=== PATIENT | male | born 1955 | race Caucasian/White ===

== ENCOUNTER 2025-06-22 15:05 | Outpatient (AMB) | payer BC, SELFPAY ==
--- NOTE | 2025-06-22 15:17 | A.OFFVIS_ITS ---
Vital Signs 3 06/22/25 15:18 Weight 233 lb 11.04 oz BP 122/68 Blood Pressure Location Rt brachial Position Sitting Pulse 69 Pulse Source Pulse Oximeter Pulse Oximetry (%) 98 Oxygen Delivery Method Room Air Intake Visit Reasons: T2DM Intake Note: NEW Patient presents today to establish treatment for Type 2 Diabetes Mellitus with Hyperglycemia: Last Diabetic eye exam was on: DUE Last Podiatry exam was on: Patient does not see a Middleware Consultant Most recent HbA1c: 13.4%, 04/14/2025, test completed at PCP. Random Glucose: 320 mg/dL L [address] Light Required: No Accompanied by: Self / Same As Patient Allergies No Known Allergies Allergy (Verified 06/22/25 15:34) HPI Comments Details: 69 years old male with past medical history of type 2 diabetes, hypothyroidism, morbid obesity, hypertension, hyperlipidemia, history of CVA, BPH, seen in the office for evaluation and treatment of type 2 diabetes. He lives in [place] but he works in [place]. We will be working there for the next 3 months. Diagnosed: 6 years Current medication: Mounjaro 7.5mg weekly- started 1 year ago, increased to 7.5mg 3 months ago Glipizide ER 10mg daily Januvia 50 mg daily Lantus increased 36 (from 20)- 2 months ago Reports being compliant with medications. Does not drink alcohol. Does not smoke. Previous medication: Metformin used in the past, stopped due to low efficacy per PCP- No reported side efects Blood sugar: Patient did not bring sensor or BG logs Hypoglycemia: no Weight: Lost 15 lbs in the last 3 weeks Macrovascular complications: PVD, +CVA (6 years ago), [place] Microvascular complications: No Retinopathy, Nephropathy, Neuropathy Denies tingling numbness in his feet, intermittent tingling in L hand Diet: eats fast food a lot as he travels for work. Does not drink soda, drinks regular sweet tea, and a lot of coconut water Exercise: No formally exercise Eye doctor: last seen 4 months ago, no DR- Malian eyewear and contacts Podiatry: never seen one. 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 CV: Regular heart rate and rhythm. Peripheral pulses, edema. Resp: Lungs clear to auscultation bilaterally Abdomen: Soft, nontender. nondistended. Insulin injection/pump site: Extremities/Neuro: No weakness or edema. Monofilament exam: Diabetic Foot Exam: Ulcers, wounds, calluses, deformities. Labs 04/14/2025 Complete Blood Count (CBC) WBC: 7.3 (4.1?10.8 x10^3/?L) RBC: 5.10 (4.14?5.80 x10^6/?L) Hemoglobin: 15.6 (13.0?17.7 g/dL) Hematocrit: 45.2 (37.5?51.0 %) MCV: 91 (79?97 fL) MCH: 30.6 (26.6?33.0 pg) MCHC: 33.8 (31.5?37.3 g/dL) RDW: 11.8 (11.6?15.4 %) Platelets: 235 (150?450 x10^3/?L) Hemoglobin A1c: 13.4% (High) Basic Metabolic Panel Glucose: 307 (High) (70?99 mg/dL) BUN: 17 (8?27 mg/dL) Creatinine: 1.05 (0.76?1.27 mg/dL) BUN/Creatinine Ratio: 16 (10?24) Sodium: 137 (134?144 mmol/L) Potassium: 4.5 (3.5?5.2 mmol/L) Chloride: 100 (95?106 mmol/L) CO? (Bicarbonate): 21 (20?29 mmol/L) Calcium: 9.3 (8.6?10.2 mg/dL) Total Protein: 6.7 (6.0?8.5 g/dL) Albumin: 4.3 (3.9?4.9 g/dL) Globulin: 2.4 (1.5?4.5 g/dL) Total Bilirubin: 0.6 (0.0?1.2 mg/dL) Alkaline Phosphatase: 57 (44?121 IU/L) AST (SGOT): 14 (0?40 IU/L) ALT (SGPT): 20 (0?44 IU/L) eGFR: 78 (>59 mL/min/1.73m?) 4. Lipid Panel Cholesterol, Total: 91 (Low) (100?199 mg/dL) Triglycerides: 130 (0?149 mg/dL) HDL Cholesterol: 39 (Low) (>39 mg/dL) VLDL Cholesterol (calculated): 23 (5?40 mg/dL) LDL Cholesterol (calculated): 29 (0?99 mg/dL) LDL/HDL Ratio: 0.7 (0.0?3.6 ratio) [facility] Medical History History of being hospitalized Diabetic peripheral neuropathy Benign prostatic hyperplasia with lower urinary tract symptoms Osteoarthritis of left knee Male erectile dysfunction, unspecified Essential (primary) hypertension Lipoma of back History of CVA (cerebrovascular accident) Carpal tunnel syndrome, bilateral Dizziness Morbid (severe) obesity due to excess calories Other specified hypothyroidism Mixed hyperlipidemia tank terminal gauger (current) use of insulin Type 2 diabetes mellitus with hyperosmolarity without nonketotic hyperglycemic- hyperosmolar coma ([facility]) Type 2 diabetes mellitus with hyperglycemia Surgical History History of carpal tunnel repair History of left knee replacement Hx of arthroscopy of right knee History of laparoscopic appendectomy Family History Father HTN (hypertension) Mother History of diabetes mellitus Social History Alcohol intake: current Alcohol intake frequency: does not drink Patient Tobacco Use Status: Former Tobacco user Physical Exam Vital Signs: Last Vital Signs Pulse 69 06/22/25 15:18 BP 122/68 06/22/25 15:18 Pulse Ox 98 06/22/25 15:18 Oxygen Delivery Method Room Air 06/22/25 15:18 Results Reviewed Results Reviewed: Laboratory Last Values Glucose (Clinic) 320 mg/dL (60-115) H 06/22/25 15:28 Assessment & Plan Assessment & Plan (1) Type 2 diabetes mellitus with hyperglycemia: Code(s): E11.65 - Type 2 diabetes mellitus with hyperglycemia Category: Medical (2) tank terminal gauger (current) use of insulin: Code(s): Z79.4 - tank terminal gauger (current) use of insulin Category: Medical Plan: T2DM (diagnosed ?6 years ago) with severe hyperglycemia and Suboptimal glycemic control despite multi-drug therapy (Mounjaro, Lantus, glipizide, Januvia; previously metformin). No history of hypoglycemia. No current evidence of microvascular complications (retinopathy, nephropathy, neuropathy). Contributing factors: inconsistent diet (frequent fast food due to travel), lack of structured exercise, possible suboptimal medication absorption (injection site rotation discussed), and possible medication non-optimization. Recent 15 lb weight loss over 3 weeks, likely multifactorial (dietary changes, Mounjaro). Patient is made aware of the importance of exercise, and medication and dietary compliance to improve diabetes control. Plan Discontinue glipizide and Januvia (minimal benefit at current A1c), glipizide may increase the risk of hypoglycemia Continue Mounjaro at 7.5 mg given the patient has appropriate weight loss with the current dose, we will consider increasing if way become standard Increase Lantus to 42 units nightly; titrate further as needed based on glucose logs/CGM. Initiate rapid-acting insulin (Lispro) with meals using a detailed sliding scale; provide written instructions. Strongly encourage use of [employer] CGM; patient to apply sensor in [place] and bring data to next visit. If CGM not available, maintain detailed blood glucose log (pre-meal, post-meal, bedtime). Educate on signs/symptoms of hypoglycemia and provide written management instructions. Reinforce importance of rotating injection sites to prevent lipohypertrophy and ensure optimal insulin absorption. Follow-up in 3 months; sooner if persistent hyperglycemia or hypoglycemia. (3) Morbid (severe) obesity due to excess calories: Code(s): E66.01 - Morbid (severe) obesity due to excess calories Category: Medical Plan: Patient with morbid obesity, currently on zepbound which was increased to 7.5 mg 3 months ago. Significant weight loss recently, but BMI likely remains in the obese range. Obesity is a major contributor to insulin resistance and complicates glycemic control. Plan We will order labs and screen the patient for MASLD with FIB-4 Score the next visit Continue dietary improvements; encourage further reduction in fast food, increased intake of lean proteins, vegetables, and whole grains. Encourage meal planning and healthy options even when traveling (e.g., pre- packed meals, grocery store options). Encourage gradual increase in physical activity (walking, resistance training as tolerated). 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 On levothyroxine 125 mcg daily for at least one year. No recent TFTs Medication administration suboptimal (taken with other meds/food). Plan Continue levothyroxine 125 mcg daily. Instruct patient to take levothyroxine on an empty stomach, at least 1 hour before other medications or 3 hours after last meal. Monitoring: Order TSH, free T4, and thyroid antibodies at next visit to assess control and etiology. Reinforce importance of proper medication timing for optimal absorption. Plan 60 minutes spent reviewing previous records, labs, imaging, education and documenting in the chart Orders: Orders 2 TSH reflex Free T4 Today E03.9 - Hypothyroidism, unspecified Thyroid Peroxidase Antibodies Today E03.9 - Hypothyroidism, unspecified Basic Metabolic Panel Today E11.65 - Type 2 diabetes mellitus with hyperglycemia, E66.01 - Morbid (severe) obesity due to excess calories Microalbumin, Random (w Creat) Today E11.65 - Type 2 diabetes mellitus with hyperglycemia Complete Blood Count no Diff Today E03.9 - Hypothyroidism, unspecified Lipid Panel Today E11.65 - Type 2 diabetes mellitus with hyperglycemia Medications: New 2 insulin lispro (Humalog KwikPen (U-100) Insulin) 12 units (0.12 mL) subcut TID 15 mL 5RF E11.65 - Type 2 diabetes mellitus with hyperglycemia, Z79.4 - longterm (current) use of insulin pen needle, diabetic (Comfort EZ Pen Leon) As directed to inject insulin QID. 100 ea 5RF E11.65 - Type 2 diabetes mellitus with hyperglycemia, Z79.4 - longterm (current) use of insulin Patient Instructions: Check your BG 4 times a day with a gucometer or use a CGM (preferred)-Please bring glucose logs of share CGM data Increase Lantus to 42 units daily Continue Mounjaro Stop Januvia and Glipizide Use Lispro based on sliding Coding Level of Care Code New Pt Level 5 (21832) Diagnoses Type 2 diabetes mellitus with hyperglycemia E11.65 tank terminal gauger (current) use of insulin Z79.4 Morbid (severe) obesity due to excess calories E66.01 Hypothyroidism (acquired) E03.9
[2025-06-22 15:18] VITALS: BP 122/68; PULSE 69; O2SAT 98
[2025-06-22 15:31] LABS: Glucose, Whole Blood 320 mg/dL (60-115)
== END 2025-06-22 16:10 | disposition home or self-care (01) ==
LOC: HO.ENCR 15:07
PROVIDERS: PCP Internal Medicine; Visit Provider Student in an Organized Health Care Education/Training Program
DX: E11.65 Type 2 diabetes mellitus with hyperglycemia (principal); Z79.4 Long term (current) use of insulin; E66.01 Morbid (severe) obesity due to excess calories; E03.9 Hypothyroidism, unspecified
CPT/HCPCS: 99205

== ENCOUNTER → 2025-06-22 15:05 | Outpatient (BNVA) | payer BC, SELFPAY | PROVIDERS: PCP Internal Medicine; Visit Provider Student in an Organized Health Care Education/Training Program | DX: E11.65 Type 2 diabetes mellitus with hyperglycemia (principal); E11.00 Type 2 diabetes mellitus with hyperosmolarity without nonketotic hyperglycemic-hyperosmolar coma (NKHHC); E66.01 Morbid (severe) obesity due to excess calories; I10 Essential (primary) hypertension; E03.9 Hypothyroidism, unspecified; Z79.4 Long term (current) use of insulin; Z79.84 Long term (current) use of oral hypoglycemic drugs | CPT/HCPCS: 82947 ==

== ENCOUNTER 2025-08-07 09:19 | Outpatient (AMB) | payer BC, SELFPAY ==
[2025-08-07 09:33] VITALS: BP 124/82; PULSE 76; O2SAT 97; BMI 36.2
--- NOTE | 2025-08-07 09:33 | A.OFFVIS_ITS ---
Vital Signs 3 08/07/25 09:33 Height 5 ft 8 in Weight 238 lb 1.588 oz BMI 36.2 BP 124/82 Blood Pressure Location Rt brachial Position Sitting Pulse 76 Pulse Source Pulse Oximeter Pulse Oximetry (%) 97 Oxygen Delivery Method Room Air Intake Visit Reasons: T2DM Intake Note: Patient presents today for a follow-up on Type 2 Diabetes Mellitus: The patient reports developing a rash and itchiness after using the prescribed insulin Glucose data available (sensor/reader/meter/pump): Yes / No Last Diabetic eye exam was on: DUE Last Podiatry exam was on: Patient does not see a [employer] Visiting Teacher Most recent HbA1c: 10.7%, 08/07/2025 Random Glucose: 262 mg/dL L Support Dba Required: No Accompanied by: Self / Same As Patient Allergies No Known Allergies Allergy (Verified 06/22/25 15:34) Medication List - Last Reconciled 08/07/25 by Irais De La Paz MD aspirin (Adult Low Dose Aspirin) 81 mg PO DAILY atorvastatin (Lipitor) 80 mg PO BEDTIME blood-glucose sensor ([employer] [place] 3 Plus Sensor device) As directed to be changed q15 days blood-glucose sensor ([employer] G7 Sensor device) As directed blood-glucose,medical resident,cont ([employer] G7 Registered Dietitian) As directed ezetimibe 10 mg PO DAILY insulin degludec (Tresiba FlexTouch U-200 insulin) 50 units (0.25 mL) subcut BEDTIME irbesartan 300 mg PO DAILY levothyroxine 125 mcg PO DAILY pen needle, diabetic (Comfort EZ Pen [place]) As directed to inject insulin QID. pen needle, diabetic As directed tirzepatide (Mounjaro) 10 mg (0.5 mL) subcut QWEEK HPI Comments Details: 69 years old male with past medical history of type 2 diabetes, hypothyroidism, morbid obesity, hypertension, hyperlipidemia, history of CVA, BPH, seen in the office for evaluation and treatment of type 2 diabetes. He lives in [place] but he works in [place]. We will be working there for the next 3 months. Diagnosed: 6 years Current medication: Mounjaro 7.5mg weekly- started 1 year ago, increased to 7.5mg 3 months ago Glipizide ER 10mg daily Januvia 50 mg daily Lantus increased 36 (from 20)- 2 months ago Reports being compliant with medications. Does not drink alcohol. Does not smoke. Previous medication: Metformin used in the past, stopped due to low efficacy per PCP- No reported side efects Blood sugar: Patient did not bring sensor or BG logs Hypoglycemia: no Weight: Lost 15 lbs in the last 3 weeks Macrovascular complications: PVD, +CVA (6 years ago), [place] Microvascular complications: No Retinopathy, Nephropathy, Neuropathy Denies tingling numbness in his feet, intermittent tingling in L hand Diet: eats fast food a lot as he travels for work. Does not drink soda, drinks regular sweet tea, and a lot of coconut water Exercise: No formally exercise Eye doctor: last seen 4 months ago, no DR- Swedish eyewear and contacts Podiatry: never seen one. CGM data: Interpretation: Persistent hyperglycemia due to dietary non-compliance and reactions to short acting insulin Hypothyroidism Unclear etiology- but likely Maggie's as patient denies surgery or GEORGE treatment Currently taking 125 mcg daily, advised to take it at night as he has other meds to take in the AM Physical exam General: BMI/obesity, NAD. CV: Regular heart rate and rhythm. Peripheral pulses, edema. Resp: Lungs clear to auscultation bilaterally Abdomen: Soft, nontender. nondistended. Insulin injection/pump site: Extremities/Neuro: No weakness or edema. Monofilament exam: Diabetic Foot Exam: Ulcers, wounds, calluses, deformities. Interval history: He reports having skin reaction to insulin (generalized, itchy rash), that persisted even when changed to regular insulin. He has not made significant changes in his diet Walks 4-5 miles per day Losing weight slowly Appetite: [place] Laboratory Tests 08/07/25 09:43 Hgb A1c (Clinic) 10.7 H 04/14/2025 Complete Blood Count (CBC) WBC: 7.3 (4.1?10.8 x10^3/?L) RBC: 5.10 (4.14?5.80 x10^6/?L) Hemoglobin: 15.6 (13.0?17.7 g/dL) Hematocrit: 45.2 (37.5?51.0 %) MCV: 91 (79?97 fL) MCH: 30.6 (26.6?33.0 pg) MCHC: 33.8 (31.5?37.3 g/dL) RDW: 11.8 (11.6?15.4 %) Platelets: 235 (150?450 x10^3/?L) Hemoglobin A1c: 13.4% (High) Basic Metabolic Panel Glucose: 307 (High) (70?99 mg/dL) BUN: 17 (8?27 mg/dL) Creatinine: 1.05 (0.76?1.27 mg/dL) BUN/Creatinine Ratio: 16 (10?24) Sodium: 137 (134?144 mmol/L) Potassium: 4.5 (3.5?5.2 mmol/L) Chloride: 100 (95?106 mmol/L) CO? (Bicarbonate): 21 (20?29 mmol/L) Calcium: 9.3 (8.6?10.2 mg/dL) Total Protein: 6.7 (6.0?8.5 g/dL) Albumin: 4.3 (3.9?4.9 g/dL) Globulin: 2.4 (1.5?4.5 g/dL) Total Bilirubin: 0.6 (0.0?1.2 mg/dL) Alkaline Phosphatase: 57 (44?121 IU/L) AST (SGOT): 14 (0?40 IU/L) ALT (SGPT): 20 (0?44 IU/L) eGFR: 78 (>59 mL/min/1.73m?) 4. Lipid Panel Cholesterol, Total: 91 (Low) (100?199 mg/dL) Triglycerides: 130 (0?149 mg/dL) HDL Cholesterol: 39 (Low) (>39 mg/dL) VLDL Cholesterol (calculated): 23 (5?40 mg/dL) LDL Cholesterol (calculated): 29 (0?99 mg/dL) LDL/HDL Ratio: 0.7 (0.0?3.6 ratio) [facility] Medical History (Updated 06/22/25 @ 16:06 by Irais De La Paz MD) History of being hospitalized Diabetic peripheral neuropathy Benign prostatic hyperplasia with lower urinary tract symptoms Osteoarthritis of left knee Male erectile dysfunction, unspecified Essential (primary) hypertension Lipoma of back History of CVA (cerebrovascular accident) Carpal tunnel syndrome, bilateral Dizziness Morbid (severe) obesity due to excess calories Other specified hypothyroidism 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 Type 2 diabetes mellitus with hyperosmolarity without nonketotic hyperglycemic- hyperosmolar coma ([facility]) Type 2 diabetes mellitus with hyperglycemia Surgical History History of carpal tunnel repair History of left knee replacement Hx of arthroscopy of right knee History of laparoscopic appendectomy Family History Father HTN (hypertension) Mother History of diabetes mellitus Social History Alcohol intake: current Alcohol intake frequency: does not drink Patient Tobacco Use Status: Former Tobacco user Physical Exam Vital Signs: Last Vital Signs Pulse 76 08/07/25 09:33 BP 124/82 08/07/25 09:33 Pulse Ox 97 08/07/25 09:33 Oxygen Delivery Method Room Air 08/07/25 09:33 BMI result Body Mass Index 36.2 Office Procedures Glucose Monitoring Details Details: See HPI 45694 - Glucose Monitoring, continuous Procedure code (CPT) selection complete Results AMB Hemoglobin A1c 2 AMB Hemoglobin A1c 10.7 % Last Edit by DOLORES Vieira on 08/07/25 09:4 7 Results Reviewed Results Reviewed: Laboratory Last Values Glucose (Clinic) 262 mg/dL (60-115) H 08/07/25 09:38 Hgb A1c (Clinic) 10.7 % (4.0-6.0) H 08/07/25 09:43 Assessment & Plan Assessment & Plan (1) Type 2 diabetes mellitus with hyperglycemia: Code(s): E11.65 - Type 2 diabetes mellitus with hyperglycemia Category: Medical (2) watermelon harvesting supervisor (current) use of insulin: Code(s): Z79.4 - watermelon harvesting supervisor (current) use of insulin Category: Medical Plan: T2DM (diagnosed ?6 years ago) with severe hyperglycemia and Suboptimal glycemic control despite multi-drug therapy (Mounjaro, Lantus, glipizide, Januvia; previously metformin) - Assessment: Glycemic control remains suboptimal, with a recent continuous glucose monitor reading of 251 mg/dL. The inability to tolerate short-acting insulin (Lispro) due to a generalized pruritic rash is a significant barrier to achieving target blood glucose levels. - Investigations planned: - Will review recent lab work from primary care physician. - Medical treatment plan: - Discontinue short-acting insulin (Lispro) due to allergic reaction. - Discontinue regular insulin. - Increase Mounjaro (tirzepatide) from 7.5 mg weekly to 10 mg weekly. Advised to start the new dose immediately rather than finishing the current supply. - Change long-acting insulin from Lantus (insulin glargine) to Tresiba (insulin degludec) 50 units subcutaneously once daily. This change is intended to reduce the volume of injection, which may help with local injection site reactions (e.g., lipodystrophy). Counseled on how to administer Tresiba, noting it is a more concentrated formulation. - A prescription for hydroxyzine was discussed for pruritus but deferred due to concerns about drowsiness and its impact on work performance. - Lifestyle modifications advised: - Continue dietary modifications focusing on vegetables and fruits. - Encouraged to increase physical activity, such as utilizing the [email or web address]. - Follow-up plan: - Follow up in approximately three months. - Will attempt to schedule an appointment with an rn social work for desensitization to insulin, which would allow for the reintroduction of short-acting insulin therapy. - Referrals made: - Referral to an rn social work for insulin desensitization. (3) Morbid (severe) obesity due to excess calories: Code(s): E66.01 - Morbid (severe) obesity due to excess calories Category: Medical Plan: Patient with morbid obesity, currently on zepbound which was increased to 7.5 mg 3 months ago. Significant weight loss recently, but BMI likely remains in the obese range. Obesity is a major contributor to insulin resistance and complicates glycemic control. Plan We will order labs and screen the patient for MASLD with FIB-4 Score the next visit- pending blood work Continue dietary improvements; encourage further reduction in fast food, increased intake of lean proteins, vegetables, and whole grains. Encourage meal planning and healthy options even when traveling (e.g., pre- packed meals, grocery store options). Encourage gradual increase in physical activity (walking, resistance training as tolerated). 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 On levothyroxine 125 mcg daily for at least one year. No recent TFTs Medication administration suboptimal (taken with other meds/food). Plan Continue levothyroxine 125 mcg daily. Instruct patient to take levothyroxine on an empty stomach, at least 1 hour before other medications or 3 hours after last meal. Monitoring: Order TSH, free T4, and thyroid antibodies at next visit to assess control and etiology. Reinforce importance of proper medication timing for optimal absorption. Plan 60 minutes spent reviewing previous records, labs, imaging, education and documenting in the chart Orders: Orders 2 AMB Hemoglobin A1c Today E11.65 - Type 2 diabetes mellitus with hyperglycemia AMB Glucose Monitoring Today E11.65 - Type 2 diabetes mellitus with hyperglycemia, Z79.4 - half-way (current) use of insulin Referrals 2 Allergy & Immunology Referral Z51.6 - Encounter for desensitization to allergens Medications: New 2 insulin degludec (Tresiba FlexTouch U-200 insulin) 50 units (0.25 mL) subcut BEDTIME 9 mL 3RF E11.65 - Type 2 diabetes mellitus with hyperglycemia, Z79.4 - half-way (current) use of insulin blood-glucose sensor ([employer] [place] 3 Plus Sensor device) As directed to be changed q15 days 2 ea 3RF E11.65 - Type 2 diabetes mellitus with hyperglycemia, Z79.4 - watermelon harvesting supervisor (current) use of insulin tirzepatide (Mounjaro) 10 mg (0.5 mL) subcut QWEEK 2 mL 2RF E11.65 - Type 2 diabetes mellitus with hyperglycemia Discontinued 2 insulin regular human (Novolin R FlexPen) Use it based on SS provided during office visit Discontinued Reason: Doctor's Order 10 units (0.1 mL) subcut Q8H 30 mL 3RF Patient Instructions: Increase Tresiba to 50 units Increase Mounjaro to 10mg weekly Allergy referral placed Coding Level of Care Code Est Pt Level 4 (97353) Add On Problem Visit Only Diagnoses Type 2 diabetes mellitus with hyperglycemia E11.65 watermelon harvesting supervisor (current) use of insulin Z79.4 Morbid (severe) obesity due to excess calories E66.01 Hypothyroidism (acquired) E03.9 CPT Codes Details - CPT: 29949 - Glucose Monitoring, continuous ([id number])
[2025-08-07 09:42] LABS: Glucose, Whole Blood 262 mg/dL (60-115)
== END 2025-08-07 10:12 | disposition home or self-care (01) ==
LOC: HO.ENCR 09:20
PROVIDERS: PCP Internal Medicine; Visit Provider Student in an Organized Health Care Education/Training Program
DX: E11.65 Type 2 diabetes mellitus with hyperglycemia (principal); Z79.4 Long term (current) use of insulin; E66.01 Morbid (severe) obesity due to excess calories; E03.9 Hypothyroidism, unspecified
CPT/HCPCS: 99214

== ENCOUNTER → 2025-08-07 09:19 | Outpatient (BNVA) | payer BC, SELFPAY | PROVIDERS: PCP Internal Medicine; Visit Provider Student in an Organized Health Care Education/Training Program | DX: E11.65 Type 2 diabetes mellitus with hyperglycemia (principal); E11.42 Type 2 diabetes mellitus with diabetic polyneuropathy; E11.00 Type 2 diabetes mellitus with hyperosmolarity without nonketotic hyperglycemic-hyperosmolar coma (NKHHC); R21 Rash and other nonspecific skin eruption; E03.9 Hypothyroidism, unspecified; E66.01 Morbid (severe) obesity due to excess calories; Z68.36 Body mass index [BMI] 36.0-36.9, adult; Z79.4 Long term (current) use of insulin | CPT/HCPCS: 82947; 83036; 95250 ==